=== PATIENT | male | born 1970 | race Caucasian/White ===

== ENCOUNTER 2024-07-24 12:07 | Inpatient (IN) | payer OTHER, SELFPAY ==
[2024-07-24] VITALS (15 sets, daily range): BP systolic 87–132; BP diastolic 63–88; BMI 23.9
--- NOTE | 2024-07-24 08:57 | ED.GENMED ---
History of Present Illness
<TOMMY Mahmood - Last Filed: 07/24/24 15:14>
General
Chief Complaint: Alcohol Problem
Source: patient
Exam Limitations: none
Time Seen by Provider: 07/24/24 08:56
Nursing documentation reviewed up to this point in time: agreed with
History of Present Illness
History of Present Illness:
Patient is a 53-year-old male with chronic alcohol use with history of alcohol withdrawal seizures, hyponatremia and hyperkalemia presents to the ER. Patient came via EMS. Girlfriend called EMS because she was concerned about patient's mental
status. Girlfriend present reports patient has been not himself and intermittently confused over the past several days. He does drink every day but she reports yesterday when he was not drinking at dinnertime he seemed off as well.
Patient presents drowsy appears intoxicated but able to state his name does admit to drinking several beers a couple hours ago.
Past History
<TOMMY Mahmood - Last Filed: 07/24/24 15:14>
Past History
ED Past Medical History: None
ED Past Surgical History: None
Social History
Tobacco: Smoker
Alcohol: Daily
Drug: None
Personal:
Living: with family
Employment: Employed
Family History
Family History: Other (reviewed and noncontributory)
Review of Systems
<TOMMY Mahmood - Last Filed: 07/24/24 15:14>
Review of Systems
Allergies reviewed?: Yes
Other source history: other (Girlfriend)
All Other Systems: ROS reviewed and negative except as documented in HPI and ROS
Constitutional: Reports no symptoms
EENT: Reports no symptoms
Respiratory: Reports no symptoms
Cardiac: Reports no symptoms
ABD/GI: Reports no symptoms
Musculoskeletal: Reports no symptoms
Skin: Reports no symptoms
Neurological: Reports other (Change in mental status as per girlfriend.)
Psychiatric: Reports no symptoms
Phy Exam
<TOMMY Mahmood - Last Filed: 07/24/24 15:14>
General Physical Exam
General Presentation: no apparent distress
General age: appears stated age
General Skin: warm and dry
General Habitus: normal
General Mental: appears intoxicated
General Hydration: dry mucous membranes
Cardiovascular Exam
Cardiovascular Exam: regular rate/rhythm
Pulmonary Exam
Pulmonary Exam: lungs clear and no respiratory distress
Neurological Exam
Neurological Exam: alert and other (Follows commands answers questions)
Musculoskeletal Exam
Musculoskeletal Exam: full ROM
Skin Exam
Skin Exam: normal color and warm/dry
Psychiatric Exam
Psychiatric Exam: normal mood/affect
Scores
<TOMYM Mahmood - Last Filed: 07/24/24 15:14>
Withdrawal Assessment of Alcohol
Withdrawal Assessment Completed?: Not applicable
Course
<TOMMY Mahmood - Last Filed: 07/24/24 15:14>
Orders/Labs/Results
Orders:
Orders
07/24/24 09:01
Alcohol Urgent
CMP [Comprehensive Metabolic Panel] Urgent
Complete Blood Count/With Diff Urgent
07/24/24 09:03
CT Head W/o Iv Contrast Urgent
Comment:
Reason For Exam: altered mental status
07/24/24 09:04
Add On- LAB Urgent
Comments:: in lab
Tests Added?: alcohol
07/24/24 09:05
Ammonia Urgent
07/24/24 09:10
0.9% Sodium Chloride 1000 ml [Nss] 1,000 ml IV BOLUS
07/24/24 11:08
PT/INR [Prothrombin Time] Urgent
07/24/24 11:47
Admit/Transfer Patient As Directed
Co-Sign Provider:
Level of Care: Inpatient admission
Assign to:: Telemetry
Physician / Group: Kermit
Diagnosis: ETOH intoxication
Reason for Telemetry: Syncope
Date to Stop Telemetry: 07/26/24
Time to Stop Telemetry: 11:00
Reason for Hospitalization: Above
Expected length of stay greater than two midnights?: Yes
ELOS- Estimated Length of Stay in days: 2
I certify the patient meets the requirements for IP care: Yes
PRN Pain Medication Management As Directed
May give lesser potent ordered pain med per pt: Yes
preference::
Protocol:: Medication orders for pain may be administered in a
manner that supports deferring to patient preference
when the pt is:
-Requesting an ordered lesser potent pain medication.
Least to most potent pain medications are defined as:
acetaminophen < NSAID < tramadol < opioids (morphine,
oxycodone, hydromorphone).
- Requesting a lesser dose of the same medication IF
ORDERED.
- Requesting a less intrusive route of administration
if both routes are prescribed by the provider (PO <
IV).
07/24/24 11:50
Code Status As Directed
Resuscitation Status: Full Code
07/26/24 11:00
DC Protocol for Telemetry ONCE
Abnormal Lab Results
07/24/24 07/24/24 07/24/24
09:01 09:05 11:08
RBC 3.61 L 10^6/uL
(4.70-6.10)
Hgb 12.8 L g/dL
(13.0-18.0)
Hct 37.2 L %
(39.0-52.0)
MCV 103.0 H fL
(80.0-94.0)
MCH 35.5 H pg
(27.0-31.0)
RDW 15.9 H %
(11.5-14.5)
Plt Count 101 L 10^3/uL
(130-400)
Monocytes % 13.0 H %
(1.7-9.3)
PT 16.6 H Sec
(11.4-14.6)
Sodium 148 H mmol/L
(135-145)
BUN 2 L mg/dl
(9-20)
Glucose 111 H mg/dl
(70-99)
Total Bilirubin 2.1 H mg/dl
(0.2-1.3)
AST 136 H U/L
(17-59)
Alkaline Phosphatase 189 H U/L
(38-126)
Ammonia 69 H umol/L
(9-30)
Alcohol, Quantitative 429 H* mg/dl
07/24/24 09:01
07/24/24 09:01
Vital Signs
Initial and Last Documented VS:
Initial Vital Signs
Temp Pulse Resp BP Pulse Ox
98 F 69 11 125/88 96
07/24/24 08:48 07/24/24 08:48 07/24/24 08:48 07/24/24 08:48 07/24/24 08:48
Last Documented Vital Signs
Temp Pulse Resp BP Pulse Ox
98 F 73 16 116/77 96
07/24/24 08:48 07/24/24 14:15 07/24/24 14:15 07/24/24 14:00 07/24/24 13:30
Stem Processing Machine Operator consulted with Physician
Stem Processing Machine Operator consulted with physician?: Yes
Name of Physician Consulted: Dr Sung
<Alejandro Sung, DO - Last Filed: 07/24/24 13:46>
Orders/Labs/Results
Orders:
Orders
07/24/24 09:01
Alcohol Urgent
CMP [Comprehensive Metabolic Panel] Urgent
Complete Blood Count/With Diff Urgent
07/24/24 09:03
CT Head W/o Iv Contrast Urgent
Comment:
Reason For Exam: altered mental status
07/24/24 09:04
Add On- LAB Urgent
Comments:: in lab
Tests Added?: alcohol
07/24/24 09:05
Ammonia Urgent
07/24/24 09:10
0.9% Sodium Chloride 1000 ml [Nss] 1,000 ml IV BOLUS
07/24/24 11:08
PT/INR [Prothrombin Time] Urgent
07/24/24 11:47
Admit/Transfer Patient As Directed
Co-Sign Provider:
Level of Care: Inpatient admission
Assign to:: Telemetry
Physician / Group: Kermit
Diagnosis: ETOH intoxication
Reason for Telemetry: Syncope
Date to Stop Telemetry: 07/26/24
Time to Stop Telemetry: 11:00
Reason for Hospitalization: Above
Expected length of stay greater than two midnights?: Yes
ELOS- Estimated Length of Stay in days: 2
I certify the patient meets the requirements for IP care: Yes
PRN Pain Medication Management As Directed
May give lesser potent ordered pain med per pt: Yes
preference::
Protocol:: Medication orders for pain may be administered in a
manner that supports deferring to patient preference
when the pt is:
-Requesting an ordered lesser potent pain medication.
Least to most potent pain medications are defined as:
acetaminophen < NSAID < tramadol < opioids (morphine,
oxycodone, hydromorphone).
- Requesting a lesser dose of the same medication IF
ORDERED.
- Requesting a less intrusive route of administration
if both routes are prescribed by the provider (PO <
IV).
07/24/24 11:50
Code Status As Directed
Resuscitation Status: Full Code
07/26/24 11:00
DC Protocol for Telemetry ONCE
Abnormal Lab Results
07/24/24 07/24/24 07/24/24
09:01 09:05 11:08
RBC 3.61 L 10^6/uL
(4.70-6.10)
Hgb 12.8 L g/dL
(13.0-18.0)
Hct 37.2 L %
(39.0-52.0)
MCV 103.0 H fL
(80.0-94.0)
MCH 35.5 H pg
(27.0-31.0)
RDW 15.9 H %
(11.5-14.5)
Plt Count 101 L 10^3/uL
(130-400)
Monocytes % 13.0 H %
(1.7-9.3)
PT 16.6 H Sec
(11.4-14.6)
Sodium 148 H mmol/L
(135-145)
BUN 2 L mg/dl
(9-20)
Glucose 111 H mg/dl
(70-99)
Total Bilirubin 2.1 H mg/dl
(0.2-1.3)
AST 136 H U/L
(17-59)
Alkaline Phosphatase 189 H U/L
(38-126)
Ammonia 69 H umol/L
(9-30)
Alcohol, Quantitative 429 H* mg/dl
07/24/24 09:01
07/24/24 09:01
Vital Signs
Initial and Last Documented VS:
Initial Vital Signs
Temp Pulse Resp BP Pulse Ox
98 F 69 11 125/88 96
07/24/24 08:48 07/24/24 08:48 07/24/24 08:48 07/24/24 08:48 07/24/24 08:48
Last Documented Vital Signs
Temp Pulse Resp BP Pulse Ox
98 F 73 16 116/77 96
07/24/24 08:48 07/24/24 14:15 07/24/24 14:15 07/24/24 14:00 07/24/24 13:30
<TOMMY Mahmood - Last Filed: 07/24/24 15:14>
MDM/Problems Addressed
Differential Diagnosis Includes:
Not limited to alcohol intoxication, dehydration, electrolyte abnormality, intracranial hemorrhage
MDM/Problems Addressed:
As documented patient has a history of alcohol abuse alcohol withdrawal seizures presents for apparent change mental status as per georginaienjuan f. Patient presents awake he is drowsy appears intoxicated. Alcohol level is elevated at 429. Girlfriend
at bedside reports over the patient several days pt seems off even when he was not drinking. His ammonia level is elevated at 69 which is new for patient. His last ammonia in October was 21. [facility] for further evaluation.
<TOMMY Mahmood - Last Filed: 07/24/24 15:14>
*Critical Care Note
Total Time (30-74mins, 75-104mins- exclusive of procedures): Not Applicable
ED Attending Note
<TOMMY Mahmood - Last Filed: 07/24/24 15:14>
-
Portions of this chart may have been created with voice recognition software.� Occasional wrong word or��sound alike� substitutions may have occurred due to the inherent limitations of voice recognition software.
<Alejandro Sung DO - Last Filed: 07/24/24 13:46>
ED Attending Note
Patient seen and examined by attending physician: Yes
I performed the substantive portion of visit, reviewed & personally made and approve the management plan that is documented in note by myself or JOSEFINA.: Yes
ED Attending Note:
53-year-old male with change in mental status. Found to have quite high alcohol level. On my assessment patient is clearly intoxicated. Ammonia level noted. Assessment plan: Admit. Trend ammonia.
Discharge Plan
Departure
Patient Disposition: Admit
Date of Disposition: 07/24/24
Time of Disposition: 10:56
Admit to: Telemetry
Admit to doctor: hospitalist
Presentation/result/management discussed w/ accepting MD/DO: Hospitalist
Patient with high blood pressure during this ER visit?: No
Condition: Fair
Covid-19: Not Applicable
Discharge Problem:
Acute alcohol intoxication, elevated ammonia
Interventions
Interventions:
*Risk Screen - Suicide Last Done: 07/24/24 08:48
*General Assessment Last Done: 07/24/24 08:48
*Neglect/Abuse Screening Last Done: 07/24/24 08:48
ED- Fall Risk Assessment Last Done: 07/24/24 08:57
ED- Neurological Assessment Last Done: 07/24/24 08:57
ED-Psychological Assessment Last Done: 07/24/24 08:57
[2024-07-24 09:16] LABS: % Basophils 0.8 % (0-2); % Eosinophils 0.6 % (0-6); % Immature Granulocytes 0.2 % (0-0.5); % Lymphocytes 41.7 % (20.5-51.1); % Neutrophils 43.7 % (42.2-75.2); Absolute Monocytes 0.6 10^3/uL (0.1-0.6); Absolute Neutrophils 2.1 10^3/uL (1.4-6.5); Hematocrit 37.2 % (39.0-52.0); Hemoglobin 12.8 g/dL (13.0-18.0); Mean Corp Hgb Conc. 34.4 g/dL (33.0-37.0); Mean Corpuscular Hgb 35.5 pg (27.0-31.0); Mean Platelet Volume 9.7 fL (7.4-10.4); Nucleated Red Blood Cells % 0 % (-); Platelet Count 101 10^3/uL (130-400); Red Blood Cell Count 3.61 10^6/uL (4.70-6.10); Red Cell Dist. Width 15.9 % (11.5-14.5); White Blood Cell Count 4.8 10^3/uL (4.8-10.8)
[2024-07-24 09:30] LABS: ALT (SGPT) 33 U/L (0-50); AST (SGOT) 136 U/L (17-59); Albumin 3.6 g/dl (3.5-5.0); Alkaline Phosphatase 189 U/L (38-126); Blood Urea Nitrogen 2 mg/dl (9-20); Calcium 8.6 mg/dl (8.4-10.2); Carbon Dioxide 26 mmol/L (22-30); Chloride 106 mmol/L (98-107); Estimated Creatinine Clearance 113 ml/min; Glucose 111 mg/dl (70-99); Sodium 148 mmol/L (135-145); Total Bilirubin 2.1 mg/dl (0.2-1.3); Total Protein 7.5 g/dl (6.3-8.2); eGFR > 60.00
[2024-07-24 09:32] LABS: Ammonia 69 umol/L (9-30)
[2024-07-24] MEDS: NSS 1000 IV (09:40)
[2024-07-24 09:49] LABS: Alcohol 429 mg/dl
[2024-07-24 11:28] LABS: INR 1.34; PT 16.6 Sec (11.4-14.6)
--- NOTE | 2024-07-24 11:55 | HPS.HSE ---
Family Physician
-
Family Physician: * NONE
Chief Complaint
-
Altered mental status
History of Present Illness
Patient is a 52 manage old male with history of severe alcohol use disorder with prior admissions due to alcohol withdrawal seizures requiring ICU care was brought to the emergency room in the company of girlfriend after found to be intoxicated.
Patient admits to drinking heavy liquor daily. As the [id number] he had bourbon drink this morning prior to presentation. No seizures noted.
While emergency room patient appeared to be drowsy, although his mental status close to baseline.
He found to be intoxicated with alcohol level above 400. In addition ammonia level elevated at 69.
Medical History
Past Medical History
Past Medical History: Reports Other (Alcohol use disorder with alcohol withdrawal seizures)
Past Surgical History: Reports None
Social History
Tobacco: Smoker
Alcohol: Daily (Heavy consumption)
Drug: None
Living: With Family
Family History
Family History: Not pertinent
Allergies / Home Medications
Allergies reflects when Allergies were last updated in [email or web address].
Home Medications with original date entered in [email or web address]
Allergy/Medication List:
Allergies
Allergy/AdvReac Type Severity Reaction Status Date / Time
acetaminophen Allergy patient Verified 07/24/24 08:57
denies
Home Medications
escitalopram oxalate 10 mg tablet (Lexapro) 10 mg PO DAILY 09/30/23
propranolol 20 mg tablet 20 mg PO BID 09/30/23
thiamine HCl (vitamin B1) 100 mg tablet 100 mg PO DAILY #30 tabs 10/05/23
cholecalciferol (vitamin D3) 25 mcg (1,000 unit) tablet (Vitamin D3) 25 mcg PO DAILY 07/24/24
cyanocobalamin (vitamin B-12) 1,000 mcg tablet 1,000 mcg PO DAILY 07/24/24
ibuprofen 200 mg tablet (Advil) 200 mg PO Q6HPRN PRN mild pain 07/24/24
Review of Systems
-
A 12 point ROS was completed and negative except as noted: Yes
Physical Exam
Vital Signs
Vital Signs
Temp Pulse Resp BP Pulse Ox
98 F 61 15 109/78 95
07/24/24 08:48 07/24/24 10:32 07/24/24 10:32 07/24/24 10:32 07/24/24 10:32
Physical Exam
General: Well Developed, Well Nourished and No Apparent Distress
HEENT: NormoCephalic, Moist mucous membranes and Atraumatic
Respiratory: Clear
Cardiac: S1/S2 and Regular Rhythm; No Murmur or Rub
GI: Soft, Non Tender, Non Distended and Normal Bowel Sounds; No Organomegaly
Rectal: Deferred by Provider
Musculoskeletal: No Clubbing, No Cyanosis and No Edema
Skin: No Rash
Neuro: Awake, Alert, Oriented, AO x 3 and Nonfocal/grossly intact; No Tremors
Laboratory Results
-
07/24/24 09:01
07/24/24 09:01
Laboratory Results
PT 16.6 Sec (11.4-14.6) H 07/24/24 11:08
INR 1.34 07/24/24 11:08
Total Bilirubin 2.1 mg/dl (0.2-1.3) H 07/24/24 09:01
AST 136 U/L (17-59) H 07/24/24 09:01
ALT 33 U/L (0-50) 07/24/24 09:01
Alkaline Phosphatase 189 U/L (38-126) H 07/24/24 09:01
Impression/Plan
-
IMPRESSION:
Altered mental status/toxic metabolic encephalopathy secondary to alcohol intoxication.
Hyperammonemia.
Alcoholic hepatitis
Anemia with macrocytosis
Dehydration with hypernatremia
Conditions prior to admission:
Severe alcohol use disorder with history of alcohol withdrawal seizure.
Depression.
Tobacco use disorder.
PLAN:
Toxic metabolic encephalopathy secondary to alcohol intoxication
Alcohol level over 400 upon presentation
Exam with no focal findings.
CT scan of the head with no acute abnormalities
Severe alcohol use disorder at risk for delirium tremens and alcohol withdrawal seizures.
Close monitoring.
MSAS protocol with lorazepam
May require escalation including phenobarbital or Precedex given prior history of alcohol withdrawal seizures requiring ICU care
Will hold on introduction of phenobarbital given elevated ammonia level and while monitoring for withdrawal as well as following liver function.
IV thiamine
Case management consultation with consideration of inpatient alcohol treatment
Dehydration with mild hypernatremia
Sodium 148.
Continue normal saline/aggressive hydration. Follow BMP
Hyperammonemia
Elevated LFTs in the pattern of alcoholic liver disease.
Most recent abdominal sonogram 10/24 with fatty liver.
Mildly elevated PT
Repeat ultrasound.
Follow ammonia level in am
Given mental status close to baseline, hold off on lactulose at this point.
Mild anemia with macrocytosis.
Suspect due to alcoholic liver disease.
Check TSH
Check B12 level
Follow hemoglobin with hydration
Continue beta-dilshad.
If this was introduced over prior admissions for persistent tachycardia. Patient has no documented cirrhosis with variceal disease.
Depression
Continue Lexapro
Full code.
DVT prophylaxis heparin
--- NOTE | 2024-07-24 17:00 | PTCARENOTE ---
patient admitted from ED on MSAS protocol. scored 3 for visible tremors and anxiety present. admission assessment completed. on tele #19, denies pain, VSS. oriented to the unit, assisted with care and ordering meals. resting comfortably in bed.
[2024-07-24] MEDS: THIAMINE INJECTION 200 MG IV ×2 (17:15→23:55)
[2024-07-24] MEDS: FOLVITE 1 MG PO (17:17)
[2024-07-24] MEDS: LEXAPRO 10 MG PO (17:17)
[2024-07-24 18:20] LABS: TSH 2.29 uIU/ml (0.47-4.68)
[2024-07-24 18:39] LABS: Vitamin B12 509 pg/ml (239-931)
[2024-07-24] MEDS: HEPARIN 5000 UNITS SC (20:24)
[2024-07-24] MEDS: INDERAL 20 MG PO (20:24)
[2024-07-25 03:24] VITALS: BP 130/76
[2024-07-25 06:21] LABS: Ammonia 37 umol/L (9-30)
[2024-07-25 06:49] LABS: % Basophils 0.7 % (0-2); % Eosinophils 0.4 % (0-6); % Immature Granulocytes 0.2 % (0-0.5); % Neutrophils 64.7 % (42.2-75.2); Absolute Lymphocytes 0.9 10^3/uL (1.2-3.4); Absolute Monocytes 0.6 10^3/uL (0.1-0.6); Absolute Neutrophils 2.9 10^3/uL (1.4-6.5); Hematocrit 35.1 % (39.0-52.0); Hemoglobin 12.3 g/dL (13.0-18.0); Mean Corpuscular Hgb 36.6 pg (27.0-31.0); Mean Corpuscular Volume 104.5 fL (80.0-94.0); Mean Platelet Volume 9.7 fL (7.4-10.4); Nucleated Red Blood Cells % 0 % (-); Platelet Count 85 10^3/uL (130-400); Red Blood Cell Count 3.36 10^6/uL (4.70-6.10); Red Cell Dist. Width 14.9 % (11.5-14.5); White Blood Cell Count 4.5 10^3/uL (4.8-10.8)
[2024-07-25 07:00] VITALS: BP 134/80
[2024-07-25 07:08] LABS: ALT (SGPT) 31 U/L (0-50); AST (SGOT) 133 U/L (17-59); Albumin 3.2 g/dl (3.5-5.0); Alkaline Phosphatase 182 U/L (38-126); Blood Urea Nitrogen 3 mg/dl (9-20); Calcium 7.9 mg/dl (8.4-10.2); Carbon Dioxide 25 mmol/L (22-30); Chloride 105 mmol/L (98-107); Estimated Creatinine Clearance > 125 ml/min; Glucose 78 mg/dl (70-99); Potassium 3.6 mmol/L (3.5-5.1); Sodium 142 mmol/L (135-145); Total Bilirubin 2.4 mg/dl (0.2-1.3); Total Protein 6.8 g/dl (6.3-8.2); eGFR > 60.00
[2024-07-25] MEDS: INDERAL 20 MG PO (08:23)
[2024-07-25] MEDS: FOLVITE 1 MG PO (08:26)
[2024-07-25] MEDS: LEXAPRO 10 MG PO (08:26)
[2024-07-25] MEDS: HEPARIN 5000 UNITS SC (08:26)
[2024-07-25] MEDS: THIAMINE INJECTION 200 MG IV (08:27)
[2024-07-25 11:00] VITALS: BP 145/84
[2024-07-25 13:00] LABS: Glycohemoglobin (HgbA1c) 4.6 % (4.0-5.6)
--- NOTE | 2024-07-25 15:13 | W.DS.TRANS ---
DC Summary - General Assistant
-
Discharge Instructions:
Discharge Diagnosis/Procedures Alcohol intoxication.
Diet Regular
Instructions:
Stand-Alone Forms:
Changes to Home Medications: No
Discharge Medications:
DC Medications w/original date entered in [facility]
escitalopram oxalate 10 mg tablet (Lexapro) 10 mg PO DAILY depression/anxiety 09/30/23
propranolol 20 mg tablet 20 mg PO BID BP/tremor/AUD 09/30/23
cholecalciferol (vitamin D3) 25 mcg (1,000 unit) tablet (Vitamin D3) 25 mcg PO DAILY Supplement 07/24/24
cyanocobalamin (vitamin B-12) 1,000 mcg tablet 1,000 mcg PO DAILY Supplement 07/24/24
thiamine HCl (vitamin B1) 100 mg tablet 100 mg PO DAILY Supplement 07/24/24
Home Medication Changes
Pending Results: No
--- NOTE | 2024-07-25 16:05 | CM ---
Patient discharged and left the hospital before [employer] was able to meet and complete initial assessment
== END 2024-07-25 15:35 | disposition home or self-care (01) | DRG 896 ==
LOC: 3 WEST ACU 12:07
PROVIDERS: Nurse Practitioner; ADMITTING PHYSICIAN Internal Medicine; EMERGENCY PHYSICIAN Emergency Medicine
DX: F10.229 Alcohol dependence with intoxication, unspecified (principal); G92.8 Other toxic encephalopathy; E87.0 Hyperosmolality and hypernatremia; E72.20 Disorder of urea cycle metabolism, unspecified; K70.10 Alcoholic hepatitis without ascites; Y90.8 Blood alcohol level of 240 mg/100 ml or more
CPT/HCPCS: 70450; 76700; 80053; 82077; 82140; 82607; 83036; 84443; 85025; 85610; 96360; 99285

== ENCOUNTER 2025-03-18 15:28 | Inpatient (IN) | payer OTHER, SELFPAY ==
[2025-03-18] VITALS (13 sets, daily range): BP systolic 124–177; BP diastolic 71–101; BMI 23.0; BMI 23.1
--- NOTE | 2025-03-18 10:14 | ED.GENMED ---
History of Present Illness
General
Chief Complaint: Seizure
Time Seen by Provider: 03/18/25 10:09
History of Present Illness
History of Present Illness:
54-year-old male presents to the emergency department for evaluation of a suspected seizure. He has a reported history of epilepsy although he denies this during our initial evaluation. He was witnessed to be having a seizure this morning by his
partner. Patient does not feel as though he had a seizure. History of alcohol use disorder, estimates he drinks at least 10 beers per day for more than the past year consistently. His last drink was 11 PM last night. He currently denies
complaints. There is evidence of dried blood around the mouth
Past History
Past History
ED Past Medical History: None
ED Past Surgical History: None
Social History
Tobacco: Smoker
Alcohol: Daily
Drug: None
Personal:
Living: with family
Employment: Employed
Family History
Family History: Other (reviewed and noncontributory)
Review of Systems
Review of Systems
Allergies reviewed?: Yes
All Other Systems: ROS reviewed and negative except as documented in HPI and ROS
Phy Exam
Physical Exam
Physical Exam:
GEN: Well appearing, NAD, WDWN
HEENT: Oral mucosa moist, no scleral icterus, no nasal congestion. Evidence of dried blood around the mouth with tongue injury appreciated
Cardiac: Regular rate and rhythm, no murmurs
Lung: No respiratory distress, no tachypnea
MSK: No gross deformity or injuries
Skin: Good color, no pallor or jaundice, no rashes
Neuro: Alert, oriented to self and place, some confusion to time and events; CN II-XII grossly intact. BUE strength 5/5 in all gutierrez, sensation intact and symmetric. BLE strength 5/5 in all gutierrez, sensation intact and symmetric. Diffuse tremor
noted at rest and with intention
Psych: Calm, cooperative
Course
Orders/Labs/Results
Orders:
Orders
03/18/25 10:14
CT Head W/o Iv Contrast Urgent
Comment:
Reason For Exam: seizure
Urinalysis Reflex To Culture Urgent
03/18/25 10:16
EKG [Electrocardiogram (*1)] Urgent
Reason for Study: Other
Other Reason for Exam: seizure
EKG- Treatment ONCE
03/18/25 10:25
Alcohol Urgent
Ammonia Urgent
Complete Blood Count/With Diff Urgent
Comprehensive Metabolic Panel Urgent
Lamictal [Lamotrigine (Lamictal)] [S] Urgent
03/18/25 13:08
Acetaminophen [Tylenol] 650 mg .ROUTE .STK-MED ONE
03/18/25 13:10
Acetaminophen [Tylenol] 650 mg PO NOW STA
03/18/25 14:11
Phenobarbital Sodium [Phenobarbital] 260 mg 0.9% Sodium Chloride 100 ml [Nss] 100 ml IV NOW
03/18/25 14:47
Admit/Transfer Patient As Directed
Co-Sign Provider:
Level of Care: Inpatient admission
Assign to:: Telemetry
Physician / Group: ady
Diagnosis: alcohol withdrawal
Reason for Telemetry: Other
Other Reason for Telemetry: alcohol withdrawal
Date to Stop Telemetry: 03/20/25
Time to Stop Telemetry: 11:00
Reason for Hospitalization: alcohol withdrawal
Expected length of stay greater than two midnights?: Yes
ELOS- Estimated Length of Stay in days: 3
I certify the patient meets the requirements for IP care: Yes
PRN Pain Medication Management As Directed
May give lesser potent ordered pain med per pt: Yes
preference::
Protocol:: Medication orders for pain may be administered in a
manner that supports deferring to patient preference
when the pt is:
- Requesting an ordered lesser potent pain medication.
Least to most potent pain medications are defined
as: acetaminophen < NSAID < tramadol < opioids
(morphine, oxycodone, hydromorphone).
- Requesting a lesser dose of the same medication IF
ORDERED.
- Requesting a less intrusive route of administration
if both routes are prescribed by the provider (PO <
IV).
03/18/25 14:48
Code Status As Directed
Resuscitation Status: Full Code
03/20/25 11:00
DC Protocol for Telemetry ONCE
Abnormal Lab Results
03/18/25 03/18/25
10:22 10:25
RBC 4.28 L 10^6/uL
(4.70-6.10)
MCV 94.9 H fL
(80.0-94.0)
MCH 33.9 H pg
(27.0-31.0)
Absolute Lymphs (auto) 0.7 L 10^3/uL
(1.2-3.4)
Neutrophils % 83.8 H %
(42.2-75.2)
Lymphocytes % 10.1 L %
(20.5-51.1)
BUN 4 L mg/dl
(9-20)
Glucose 188 H mg/dl
(70-99)
Ammonia 61 H umol/L
(9-30)
POC Glucose 205 H mg/dl
(70-99)
03/18/25 10:25
03/18/25 10:25
Vital Signs
Initial and Last Documented VS:
Initial Vital Signs
Temp Pulse Resp BP Pulse Ox
98.7 F 72 17 147/101 96
03/18/25 10:09 03/18/25 10:09 03/18/25 10:09 03/18/25 10:09 03/18/25 10:09
Last Documented Vital Signs
Temp Pulse Resp BP Pulse Ox
99.6 F 70 14 145/90 95
03/18/25 14:00 03/18/25 14:15 03/18/25 14:15 03/18/25 14:00 03/18/25 14:15
MDM/Problems Addressed
MDM/Problems Addressed:
54-year-old male presents to the emergency department after a witnessed seizure. He was initially quite stable in the emergency department however had a recurrent seizure event with subsequent increase in blood pressure and diaphoretic appearance.
This is concerning for progressive alcohol withdrawal. Initially he was placed in outpatient detox program however given the repeated seizure event we will admit him for withdrawal management
*Pulse Oximetry
SaO2: 96
Oxygen Mode of Delivery: Room air
Patient hypoxic: no
*Critical Care Note
Total Time (30-74mins, 75-104mins- exclusive of procedures): Not Applicable
Update Note
Update Note:
1357: Called to the room by patient's significant other alerting us that the patient had a witnessed seizure-like event with a staring spell, generalized tremors, and unresponsiveness. On my arrival the patient is alert but profoundly diaphoretic
and hypertensive. He was evaluated by Vianey nolasco and is set up with an outpatient appointment on Sunday for withdrawal/detox program. Will admit for withdrawal protocol
ED Attending Note
-
Portions of this chart may have been created with voice recognition software.� Occasional wrong word or��sound alike� substitutions may have occurred due to the inherent limitations of voice recognition software.
Discharge Plan
Departure
Patient Disposition: Admit
Date of Disposition: 03/18/25
Time of Disposition: 14:04
Admit to: IMU
Presentation/result/management discussed w/ accepting MD/DO: Hospitalist
Discharge Problem:
Alcohol withdrawal seizure
Interventions
Interventions:
*Risk Screen - Suicide Last Done: 03/18/25 10:16
*General Assessment Last Done: 03/18/25 10:17
*Neglect/Abuse Screening Last Done: 03/18/25 10:16
*ED- Fall Risk Assessment Last Done: 03/18/25 10:15
*ED COVID-19 Vaccine History Last Done: 03/18/25 10:15
ED- Cardiac Assessment Last Done: 03/18/25 10:19
ED- Neurological Assessment Last Done: 03/18/25 10:19
ED- Pulmonary Assessment Last Done: 03/18/25 10:19
[2025-03-18 10:23] LABS: Glucose - Point of Care 205 mg/dl (70-99)
[2025-03-18 10:37] LABS: % Basophils 0.3 % (0-2); % Immature Granulocytes 0.3 % (0-0.5); % Lymphocytes 10.1 % (20.5-51.1); % Monocytes 5.5 % (1.7-9.3); % Neutrophils 83.8 % (42.2-75.2); Absolute Lymphocytes 0.7 10^3/uL (1.2-3.4); Absolute Monocytes 0.4 10^3/uL (0.1-0.6); Absolute Neutrophils 5.5 10^3/uL (1.4-6.5); Hematocrit 40.6 % (39.0-52.0); Hemoglobin 14.5 g/dL (13.0-18.0); Mean Corp Hgb Conc. 35.7 g/dL (33.0-37.0); Mean Corpuscular Hgb 33.9 pg (27.0-31.0); Mean Corpuscular Volume 94.9 fL (80.0-94.0); Mean Platelet Volume 9.6 fL (7.4-10.4); Nucleated Red Blood Cells % 0 % (-); Platelet Count 138 10^3/uL (130-400); Red Blood Cell Count 4.28 10^6/uL (4.70-6.10); Red Cell Dist. Width 12.4 % (11.5-14.5); White Blood Cell Count 6.5 10^3/uL (4.8-10.8)
[2025-03-18 10:56] LABS: AST (SGOT) 37 U/L (17-59); Albumin 4.2 g/dl (3.5-5.0); Alcohol None Detected; Alkaline Phosphatase 57 U/L (38-126); Blood Urea Nitrogen 4 mg/dl (9-20); Carbon Dioxide 25 mmol/L (22-30); Chloride 105 mmol/L (98-107); Estimated Creatinine Clearance > 125 ml/min; Glucose 188 mg/dl (70-99); Potassium 4.5 mmol/L (3.5-5.1); Sodium 137 mmol/L (135-145); Total Bilirubin 1.2 mg/dl (0.2-1.3); Total Protein 7.4 g/dl (6.3-8.2); eGFR > 60.00
[2025-03-18 11:02] LABS: Ammonia 61 umol/L (9-30)
[2025-03-18 11:51] LABS: ALT (SGPT) < 10 U/L (0-50)
[2025-03-18] MEDS: TYLENOL 650 MG PO (13:11)
[2025-03-18] MEDS: PHENOBARBITAL 104 MG IV (14:25)
--- NOTE | 2025-03-18 14:26 | HPS.HSE ---
Family Physician
-
Family Physician: * NONE
Chief Complaint
-
Seizure
History of Present Illness
54-year-old male with past medical history of alcohol abuse, withdrawal seizures, depression, anxiety with seizure. Patient was cutting down on his alcohol. He stopped drinking vodka since yesterday. He drank 6 beers daily. Patient usually
drinks half a paint vodka daily. This morning, his noted him breathing heavy, his hands were twitching, he bit on his tongue and he was noted diaphoretic and pale. Lasted for less than 5 minutes. By the time ambulance got patient was fine
and walked to the ambulance. Patient complained of headache. Patient denied any dizzy or syncope. Patient denied any fever, chills, cough or congestion. Patient denied any abdominal pain, nausea, vomiting, diarrhea. Patient denied dysuria
hematuria.Cymbalta was started yesterday as they are planning to wean him off the Lexapro as its not helping.
Patient was noted to have seizure in the ER as well. Patient received a dose of Tylenol, phenobarbital in ER. UA sent from ER. Lamictal labs pending. Admitting for further management
Medical History
Past Medical History
Past Medical History: Reports Other
Additional Past Medical History:
Tremors
Anxiety
Depression
Arthritis
Lyme disease
Past Surgical History: Reports None
Social History
Tobacco: Non-smoker
Alcohol: Daily
Drug: None
Personal:
Living: With Family
Family History
Family History: Not pertinent
Allergies / Home Medications
Allergies reflects when Allergies were last updated in [facility].
Home Medications with original date entered in [facility]
Allergy/Medication List:
Allergies
Allergy/AdvReac Type Severity Reaction Status Date / Time
acetaminophen Allergy patient Verified 07/24/24 08:57
denies
Home Medications
escitalopram oxalate 10 mg tablet (Lexapro) 10 mg PO DAILY depression/anxiety 09/30/23
propranolol 20 mg tablet 20 mg PO BID BP/tremor/AUD 09/30/23
cholecalciferol (vitamin D3) 25 mcg (1,000 unit) tablet (Vitamin D3) 25 mcg PO DAILY Supplement 07/24/24
cyanocobalamin (vitamin B-12) 1,000 mcg tablet 1,000 mcg PO DAILY Supplement 07/24/24
thiamine HCl (vitamin B1) 100 mg tablet 100 mg PO DAILY Supplement 07/24/24
Review of Systems
-
Constitutional: Reports No Symptoms
EENT: Reports No Symptoms
Respiratory: Reports No Symptoms
Cardiac: Reports No Symptoms
Abdomen/GI: Reports No Symptoms
: Reports No Symptoms
Musculoskeletal: Reports No Symptoms
Skin: Reports No Symptoms
Neurological: Reports No Symptoms
Endocrine: Reports No Symptoms
Hematologic/Lymphatic: Reports No Symptoms
Psych: Reports No Symptoms
Physical Exam
Vital Signs
Vital Signs
Temp Pulse Resp BP Pulse Ox
99.6 F 70 14 145/90 95
03/18/25 14:00 03/18/25 14:15 03/18/25 14:15 03/18/25 14:00 03/18/25 14:15
Physical Exam
General: Well Developed, Well Nourished and No Apparent Distress
HEENT: NormoCephalic, Moist mucous membranes and Atraumatic
Respiratory: Clear
Cardiac: S1/S2 and Regular Rhythm; No Murmur or Rub
GI: Soft, Non Tender, Non Distended and Normal Bowel Sounds; No Organomegaly
Rectal: Deferred by Provider
Musculoskeletal: No Clubbing, No Cyanosis and No Edema
Skin: No Rash
Neuro: AO x 3 and Nonfocal/grossly intact
Psych: Calm
Laboratory Results
-
03/18/25 10:25
03/18/25 10:25
Laboratory Results
Total Bilirubin 1.2 mg/dl (0.2-1.3) 03/18/25 10:25
AST 37 U/L (17-59) 03/18/25 10:25
ALT < 10 U/L (0-50) 03/18/25 10:25
Alkaline Phosphatase 57 U/L (38-126) 03/18/25 10:25
Data Reviewed
-
CT Scan: Report Reviewed by me
Lab Data: Labs Reviewed by me
Impression/Plan
-
# Alcohol withdrawal with multiple seizures
- Head CT with small old right lentiform nucleus infract seen again.No acute intracranial abnormality.
- Alcohol protocol initiated
- Monitor MSAS score
-B care consulted
- Initiated on phenobarbital
# Hyperammonemia
- Continue to monitor
# Tremor
-Propranolol continued
#Depression/mood disorder
Continue Lexapro
-hold Cymbalta
- Mirtazapine for sleep at night
-Lamictal continued
Full code.
DVT prophylaxis lovenox
--- NOTE | 2025-03-18 15:22 | W.PN.UPDATE ---
Update Note
Progress Note Update
This is an addendum to H&P written by Rodolfo Muro on 03/18/2025. �Patient seen and examined independently with [employer].
54-year-old male past medical history of alcohol use disorder, alcohol withdrawal seizure once, alcoholic hepatitis, on Lamictal for mood stabilization, hyperammonemia, anemia, tobacco use disorder, here for alcohol withdrawal seizure.
Started taking duloxetine yesterday and weaning off Lexapro because Lexapro not helping his mood.
He was drinking half a pint of vodka +6 beers and stopped vodka yesterday and continuing to 6 beers. �Last drink last night. � noted that he was breathing heavily and hands were twitching while asleep and biting tongue.
Alcohol level negative. �Ammonia level of 61. �CT head shows small old right lentiform nucleus infarct again seen.
Patient with alcohol withdrawal seizures alcohol withdrawal. �Phenobarbital protocol. �Alcohol withdrawal protocol. �IV fluids, thiamine and folate. �Lamictal level pending.
Will hold Cymbalta although does not seem that seizure is related to this.
--- NOTE | 2025-03-18 15:51 | CM ---
CM reviewed chart and met with pt bedside in ED.
Pt lives with Significant Other Humberto in 2nd floor apartment, full flight of stairs, BR/BA same level.
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
No DME, no hx VN/SNF.
Offered BECARES, pt declined, wants to speak to SO first.
PCP: None
Pharmacy: [facility]
Discharge plan: Anticipate home pending ongoing medical evaluation
[2025-03-18] MEDS: THIAMINE INJECTION 200 MG IV ×2 (17:52→23:50)
[2025-03-18] MEDS: LEXAPRO 15 MG PO (17:52)
[2025-03-18] MEDS: LOVENOX 40 MG SC (17:53)
[2025-03-18 17:55] LABS: GGTP 271 U/L (15-73); Magnesium 1.9 mg/dl (1.6-2.3); Phosphorus 3.7 mg/dl (2.5-4.5)
[2025-03-18 17:56] LABS: Alcohol None Detected
--- NOTE | 2025-03-18 18:00 | PTCARENOTE ---
Pt received from ED and walked into room 333 with little assistance. VSS. Pt oriented to unit. pt assigned tele, HR 80s-90s. aaox3 and very pleasant. Pt tremulous and diaphoretic, scoring 3 on MSAS protocol. Call [facility] within reach. Plan of care
ongoing.
[2025-03-18 18:01] LABS: B-Hydroxybutyrate 0.51 mmol/L (0.02-0.27)
[2025-03-18 19:28] LABS: INR 1.08; PT 14.5 Sec (11.4-14.6)
[2025-03-18 19:29] LABS: APTT 30.6 Sec (23.4-35.0)
[2025-03-18] MEDS: INDERAL 20 MG PO (21:01)
[2025-03-18] MEDS: PHENOBARBITAL 97.5 MG IV (21:18)
[2025-03-18] MEDS: REMERON 15 MG PO (21:18)
[2025-03-18] MEDS: FLUSH (NSS) 2 FLUSH IV ×2 (21:23→23:50)
[2025-03-19 03:11] VITALS: BP 142/93
--- NOTE | 2025-03-19 07:37 | W.PN.HOSP.TC ---
Today's Communication/Plan
-
Continue Phenobarb taper
High risk alcohol withdrawal
Continue to monitor on telemetry
Assessment / Plan
Assessment / Plan
Physical Exam
General: Well Developed, Well Nourished and No Apparent Distress
HEENT: Normocephalic, Moist mucous membranes
Respiratory: Clear to Auscultation Bilaterally
Cardiac: S1/S2 and Regular Rhythm
GI: Soft, Non Tender, Non Distended and Normal Bowel Sounds
Musculoskeletal: No Cyanosis and No Edema
Skin: Warm. Dry.
Neuro: AAO x 3 and Nonfocal/grossly intact
Psych: Calm
Assessment/Plan
54-year-old male with past medical history of reported history of epilepsy, alcohol use disorder, alcohol withdrawal seizure once, alcoholic hepatitis, on Lamictal for mood stabilization, hyperammonemia, anemia, tobacco use disorder, presented for
alcohol withdrawal seizure. Started taking duloxetine yesterday and weaning off Lexapro because Lexapro not helping his mood. He was drinking half a pint of vodka +6 beers and stopped vodka on 03/17/25 and continuing to 6 beers on 03/17/25. Last
drink was 03/17/25 evening. noted that he was breathing heavily and hands were twitching while asleep and biting tongue. Alcohol level negative. Ammonia level of 61. 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
Patient with susp[ected alcohol withdrawal seizures alcohol withdrawal. Phenobarbital protocol. Alcohol withdrawal protocol. IV fluids, thiamine and folate. Lamictal level pending. Will hold Cymbalta although does not seem that seizure is
related to this.
# Alcohol withdrawal with multiple seizures
- Head CT with small old right lentiform nucleus infract seen again.No acute intracranial abnormality.
- Alcohol protocol initiated
- Monitor MSAS score
- B care consulted
- Continue phenobarbital taper
- Patient has a reported history of epilepsy per records, will consult neurology
- Follow-up Lamictal level
- Patient Started Cymbalta 03/17/25 -- but this was stopped on admission given seizure -- this was for mood -- since Lexapro was not working for mood, it was being weaned off and Cymbalta started
outpatient
# Hyperammonemia
- Was elevated at 61
- No encephalopathy noted
# Tremor
-Propranolol continued
#Depression/mood disorder
- Continue Lexapro taper
- Hold Cymbalta
- Mirtazapine for sleep at night
- Lamictal continued
Code Status: Full Code
DVT Prophylaxis: Lovenox
Anticipated Discharge: > 48 hours
Subjective/Interval History
-
Date of Service: March 19, 2025
Patient was seen and examined. He denied any further seizures, or any other new symptoms or complaints today.
Objective Data
-
Vital Signs:
Vital Signs
Temp Pulse Resp BP Pulse Ox
98.0 F 75 16 142/93 98
03/19/25 03:11 03/19/25 03:11 03/19/25 03:11 03/19/25 03:11 03/19/25 03:11
I&O
03/18/25 03/19/25 03/20/25
06:59 06:59 06:59
Intake Total 1440 / 1440
Balance 1440 / 1440
[2025-03-19] MEDS: LAMICTAL 150 MG PO (07:52)
[2025-03-19] MEDS: FEOSOL 325 MG PO (07:52)
[2025-03-19] MEDS: FOLVITE 1 MG PO (07:52)
[2025-03-19] MEDS: PHENOBARBITAL 97.5 MG IV ×3 (07:53→21:57)
[2025-03-19] MEDS: LEXAPRO 15 MG PO (07:53)
[2025-03-19] MEDS: THIAMINE INJECTION 200 MG IV ×2 (07:54→15:39)
[2025-03-19] MEDS: INDERAL 20 MG PO ×2 (07:57→20:09)
[2025-03-19 08:00] VITALS: BP 125/80
[2025-03-19 11:30] VITALS: BP 120/69
[2025-03-19 14:12] LABS: Hemoglobin 14.1 g/dL (13.0-18.0); Mean Corp Hgb Conc. 35.3 g/dL (33.0-37.0); Mean Corpuscular Hgb 34.1 pg (27.0-31.0); Mean Corpuscular Volume 96.9 fL (80.0-94.0); Mean Platelet Volume 9.3 fL (7.4-10.4); Platelet Count 135 10^3/uL (130-400); Red Blood Cell Count 4.13 10^6/uL (4.70-6.10); Red Cell Dist. Width 12.6 % (11.5-14.5); White Blood Cell Count 8.3 10^3/uL (4.8-10.8)
[2025-03-19 14:48] LABS: Blood Urea Nitrogen 10 mg/dl (9-20); Calcium 9.2 mg/dl (8.4-10.2); Carbon Dioxide 26 mmol/L (22-30); Chloride 108 mmol/L (98-107); Estimated Creatinine Clearance > 125 ml/min; Glucose 90 mg/dl (70-99); Potassium 3.8 mmol/L (3.5-5.1); Sodium 140 mmol/L (135-145); eGFR > 60.00
[2025-03-19 16:01] VITALS: BP 133/70
[2025-03-19] MEDS: LOVENOX SC (18:07)
[2025-03-19 19:45] VITALS: BP 122/70
[2025-03-19] MEDS: REMERON 15 MG PO (21:57)
[2025-03-19] MEDS: TUMS CHEWABLE TABLET 200 MG PO (21:57)
[2025-03-19 22:42] VITALS: BP 141/84
[2025-03-19 22:49] LABS: Urine Albumin 2+ (Neg - Trace); Urine Bilirubin 1+ (Negative); Urine Character Clear (Clear); Urine Color Yellow; Urine Glucose Negative (Negative); Urine Ketone Negative (Negative); Urine Leukocyte 1+ (Negative); Urine Nitrite Negative (Negative); Urine Occult Blood Negative (Negative); Urine Urobilinogen 2+ (Neg - 1+)
[2025-03-19 22:55] LABS: Urine Mucus Many
[2025-03-19 22:56] LABS: Urine Calcium Oxalate Crystals Present; Urine Squamous Cell 0-2 /LPF (Few)
[2025-03-19 22:57] LABS: Urine Bacteria Moderate (Negative); Urine Red Blood Cell 0-2 /HPF (0-2)
[2025-03-19 22:58] LABS: Marijuana Positive (Negative); Tricyclic Antidepressants Negative (Negative)
[2025-03-19 22:59] LABS: Amphetamines Negative (Negative); Barbiturates Positive (Negative); Benzodiazepines Negative (Negative); Buprenorphine Negative (Negative); Cocaine Negative (Negative); Methadone Negative (Negative); Methamphetamines Negative (Negative); Opiates Negative (Negative); Phencyclidine Negative (Negative)
[2025-03-20] MEDS: THIAMINE INJECTION 200 MG IV ×4 (00:11→23:21)
[2025-03-20 02:38] VITALS: BP 142/86
[2025-03-20 06:13] LABS: Ammonia < 9 umol/L (9-30)
[2025-03-20 06:45] LABS: Blood Urea Nitrogen 11 mg/dl (9-20); Carbon Dioxide 28 mmol/L (22-30); Chloride 105 mmol/L (98-107); Estimated Creatinine Clearance > 125 ml/min; Glucose 94 mg/dl (70-99); Potassium 3.8 mmol/L (3.5-5.1); Sodium 138 mmol/L (135-145); eGFR > 60.00
[2025-03-20 07:49] VITALS: BP 134/81
--- NOTE | 2025-03-20 08:06 | CON.NEURO ---
Consultation
Order
Date of Consultation: 03/20/25
Requesting Provider:
Reason for Consult:
Neurology Consultation Note.
HPI: This is a 54-year-old right-handed man who presented to [facility] on 03/18/2025 with witnessed seizure. According to EMR patient had seizure following alcohol cessation in sleep prompting the evaluation.
Mr. Huitron has a history of alcohol use since age 14-15, presents with concerns of memory problems that have been ongoing for the past couple of years. He reports difficulties with short-term memory, which have been noticed by his family members,
colleagues, and girlfriend.
The patient describes forgetting information shortly after being told, with his girlfriend often remarking, 'I just told you that like 5 minutes ago.' He tends to forget things he has looked at once or twice and then put aside. Mr. Huitron
acknowledges difficulties learning new information and reports repeating himself and telling the same stories.
Mr. Huitron came to the hospital primarily for alcohol detoxification, recognizing that his excessive drinking was 'starting to affect my life a lot and my health.' He made this decision jointly with his partner. The patient reports a family
history of dementia in his paternal grandfather, who also experienced mood disorders.
Currently, Mr. Huitron is taking medications for depression and anxiety, including escitalopram, though he has difficulty remembering all of his prescriptions. He uses a pillbox to manage his medications, which either he or his girlfriend fills.
No reports of head trauma with loss of consciousness, febrile seizures.
EMS VS: 154/96, 100, 16, 95 on room air, fingerstick�104.
ER VS: 147/101, 72, afebrile
EKG: NSR, QTc Int : 525 ms.
PDMP: No recently prescribed medication
Labs: Glucose�188, normal sodium, creatinine, WBCs, GGT�271, bilirubin�1.2, ammonia�61, UA�positive for leukocyte esterase, bilirubin, 3�5 WBCs, bacteria negative for nitrates, urine tox�positive for THC, barbiturates (phenobarbital was administered
in the hospital), Lamictal�5.2, ATOH�negative
CT head wo contrast-chronic right lentiform nucleus infarct, moderate generalized atrophy.
PMH: Alcohol use disorder, ELPIDIO, vitamin D deficiency
PSH:
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
FH: Father's uncle: Alcohol addiction
All: Tylenol
ROS: Constitutional: Negative. Negative for chills, fever and unexpected weight change.
HENT: Negative for ear pain, hearing loss, tinnitus and trouble swallowing.
Eyes: Negative. Negative for photophobia, pain and visual disturbance.
Respiratory: Negative for cough, choking and shortness of breath.
Cardiovascular: Negative for chest pain, palpitations and leg swelling.
Gastrointestinal: Negative for abdominal pain and vomiting.
Endocrine: Negative. Negative for cold intolerance.
Genitourinary: Negative for dysuria, flank pain and urgency.
Musculoskeletal: Negative for back pain, gait problem, neck pain and neck stiffness.
Skin: Negative for rash.
Allergic/Immunologic: Negative. Negative for immunocompromised state.
Neurological: Positive for poor memory
Psychiatric/Behavioral: Negative for behavioral problems, confusion and hallucinations.
General: Well developed. In no acute distress.
Cardio: Regular rate and rhythm without murmur. Extremities are without cyanosis or edema.
Neuro:
Mental Status: Alert, oriented to person, place, and date. Normal attention, impaired recall. Good fund of knowledge. Follows complex requests across the midline. Comprehension, naming, and repetition intact. Immediate recall 3/3.
Cranial Nerves: Pupils are equally round and reactive to light. EOMs full. Visual gutierrez full to confrontation. No ptosis. No nystagmus. V1-V3 intact to light touch and pinprick bilaterally, symmetric. Face symmetric. Normal hearing AU. The
palate elevated well. SCMs and traps 5/5. Tongue midline. No dysarthria.
Motor: Normal bulk and tone. No pronator or arm drift. Strength 5/5 throughout. No clonus.
Reflexes: 2+ throughout the upper extremities and knees. Plantar responses flexor bilaterally.
Sensory: Preserved vibration at the toes
Coordination: No dysmetria or tremor.
Gait: Normal stance, base. Difficulties with tandem gait.
Assessment and Plan:
I. Symptomatic seizure. Back to baseline
II. 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
III. Chronic right lentiform nucleus infarct, known to cause memory impairment, among other cognitive and motor deficits.�The specific memory impairments can vary, but may include difficulties with new memory formation while retaining older
memories.�The lentiform nucleus is involved in various cognitive functions, including memory, working memory, and executive functions
IV. Cannabis and alcohol use disorder.
V. Brain atrophy (toxic versus neurodegenerative)/
-Seizure precaution
- Aspirin 81 mg once a day
- Continue thiamine, vitamin B12
- Please obtain routine EEG and brain MRI (can be done as outpatient)
- Addiction psychiatry follow-up
- Outpatient neuropsychological evaluation
- Outpatient neurology follow-up (may consider amyloid PET scan)
I personally reviewed all radiology and labs along with past medical records pertinent to current medical problems. Total time spent in patient care is 60 minutes.
Thank you for allowing us to participate in the care of this patient. We will continue to follow. Please do not hesitate to contact us with any questions or concerns.
Subjective/Objective
Subjective Data
Date of Service: March 20, 2025
Objective Data
Vital Signs
Temp Pulse Resp BP Pulse Ox
36.6 C 59 16 134/81 96
03/20/25 07:49 03/20/25 07:49 03/20/25 07:49 03/20/25 07:49 03/20/25 07:49
Lab Results
03/19/25 14:05
03/20/25 05:37
PT 14.5 Sec (11.4-14.6) 03/18/25 19:11
INR 1.08 03/18/25 19:11
APTT 30.6 Sec (23.4-35.0) 03/18/25 19:11
Sodium 138 mmol/L (135-145) 03/20/25 05:37
Potassium 3.8 mmol/L (3.5-5.1) 03/20/25 05:37
BUN 11 mg/dl (9-20) 03/20/25 05:37
Glucose 94 mg/dl (70-99) 03/20/25 05:37
Calcium 9.0 mg/dl (8.4-10.2) 03/20/25 05:37
Phosphorus 3.7 mg/dl (2.5-4.5) 03/18/25 17:31
Ur Buprenorphine Negative (Negative) 03/19/25 22:39
Patient Allergies
acetaminophen Allergy (Verified 07/24/24 08:57)
patient denies
Medications
-
Active Medications
Generic Name Dose Route Start Last Admin
Trade Name Freq PRN Reason Stop Dose Admin
Bisacodyl 10 mg 03/18/25 16:59
Bisacodyl 10 Mg Rectal Suppository RECTAL 04/15/25 16:58
[id number] PRN
constipation
Enoxaparin Sodium 40 mg 03/18/25 18:00 03/19/25 18:07
Enoxaparin Sodium 40 Mg/0.4 Ml Syringe SC 04/15/25 17:59 Not Given
QPM RUBI
Escitalopram Oxalate 15 mg 03/18/25 17:00 03/19/25 07:53
Escitalopram 10 Mg Tablet PO 03/23/25 08:01 15 mg
DAILY RUBI Administration
Escitalopram Oxalate 10 mg 03/24/25 08:00
Escitalopram 10 Mg Tablet PO 03/30/25 08:01
DAILY RUBI
Escitalopram Oxalate 5 mg 03/31/25 08:00
Escitalopram 5 Mg Tablet PO 04/06/25 08:01
DAILY RUBI
Ferrous Sulfate 325 mg 03/19/25 08:00 03/19/25 07:52
Ferrous Sulfate 325 Mg Tablet PO 04/16/25 07:59 325 mg
DAILY RUBI Administration
Folic Acid 1 mg 03/19/25 08:00 03/19/25 07:52
Folic Acid 1 Mg Tablet PO 04/16/25 07:59 1 mg
DAILY RUBI Administration
Folic Acid 1 mg/ Sodium 50.2 mls @ 200.8 mls/hr 03/18/25 16:59
Chloride IV 04/15/25 16:58
DAILYPRN PRN
if NPO
Lamotrigine 150 mg 03/19/25 08:00 03/19/25 07:52
Lamotrigine 100 Mg Tablet PO 04/16/25 07:59 150 mg
DAILY RUBI Administration
Lorazepam 1 mg 03/18/25 16:59
Lorazepam 1 Mg Tablet PO 04/15/25 16:58
Q2HPRN PRN
MSAS 5-7
Lorazepam 2 mg 03/18/25 16:59
Lorazepam 2 Mg/Ml Vial IV 04/15/25 16:58
Q1HPRN PRN
MSAS > 11
Lorazepam 1 mg 03/18/25 17:39
Lorazepam 1 Mg Tablet PO 04/15/25 17:38
Q1HPRN PRN
MSAS 8-11
Mirtazapine 15 mg 03/18/25 22:00 03/19/25 21:57
Mirtazapine 15 Mg Regular Release Tablet PO 04/15/25 21:59 15 mg
HS RUBI Administration
Phenobarbital Sodium 97.5 mg 03/18/25 22:00 03/19/25 21:57
Phenobarbital (65 Mg/Ml) 1 Ml Vial IV 03/20/25 16:01 97.5 mg
TID RUBI Administration
Phenobarbital Sodium 64.8 mg 03/20/25 22:00
Phenobarbital 32.4 Mg Tablet PO 03/22/25 16:01
TID RUBI
Phenobarbital Sodium 32.4 mg 03/22/25 22:00
Phenobarbital 32.4 Mg Tablet PO 03/24/25 16:01
TID RUBI
Polyethylene Glycol 17 grams 03/18/25 16:59
Polyethylene Glycol Powder 17 Grams Packet PO 04/15/25 16:58
DAILYPRN PRN
constipation
Propranolol HCl 20 mg 03/18/25 20:00 03/19/25 20:09
Propranolol 20 Mg Regular Release Tablet PO 04/15/25 19:59 20 mg
BID RUBI Administration
Senna/Docusate Sodium 1 tablet 03/18/25 16:59
Docusate W/Senna (Carla-Colace) Tablet PO 04/15/25 16:58
BIDPRN PRN
constipation
Sodium Chloride 0 ml 03/18/25 16:59
Sodium Chloride 0.9% (Preservative Free) 10 Ml Vial IV 04/15/25 16:58
PRN PRN
To dilute IV Ativan
Protocol
Sodium Chloride 0 flush 03/18/25 18:00 03/18/25 23:50
Sodium Chloride 0.9% (Flush) Syringe IV 04/15/25 17:59 2 flush
PER PROTOCOL RUBI Administration
Thiamine HCl 200 mg 03/18/25 16:59 03/20/25 00:11
Thiamine (100 Mg/Ml) 2 Ml Vial IV 03/21/25 08:01 200 mg
Q8 RUBI Administration
Thiamine HCl 100 mg 03/21/25 20:00
Thiamine 100 Mg Tablet PO 04/18/25 19:59
BID RUBI
Home Medications
�Medication �Instructions �Recorded
escitalopram oxalate 10 mg tablet 15 mg PO DIRECTED 09/30/23
(Lexapro) depression/anxiety
propranolol 20 mg tablet 20 mg PO BID BP/tremor/AUD 09/30/23
cholecalciferol (vitamin D3) 25 25 mcg PO DAILY Supplement 07/24/24
mcg (1,000 unit) tablet (Vitamin
D3)
cyanocobalamin (vitamin B-12) 1,000 mcg PO DAILY Supplement 07/24/24
1,000 mcg tablet
thiamine HCl (vitamin B1) 100 mg 100 mg PO DAILY Supplement 07/24/24
tablet
Niacin (Vitamin B3) 1 tab PO DAILY 03/18/25
duloxetine 20 mg capsule,delayed 10 mg PO DIRECTED 03/18/25
release (Cymbalta)
ferrous sulfate 325 mg (65 mg 325 mg PO DAILY 03/18/25
iron) tablet (iron)
ibuprofen 200 mg tablet 200 - 400 mg PO DAILYPRN PRN mild 03/18/25
pain
lamotrigine 150 mg tablet 150 mg PO DAILY 03/18/25
(Lamictal)
mirtazapine 15 mg tablet (Remeron) 15 mg PO HS 03/18/25
therapeutic multivitamin 1 tab PO DAILY 03/18/25
Vital Signs and Labs
-
Vital Signs and Labs:
Vital Signs
Temp Pulse Resp BP Pulse Ox
36.6 C 59 16 134/81 96
03/20/25 07:49 03/20/25 07:49 03/20/25 07:49 03/20/25 07:49 03/20/25 07:49
Lab Results
03/19/25 14:05
03/20/25 05:37
PT 14.5 Sec (11.4-14.6) 03/18/25 19:11
INR 1.08 03/18/25 19:11
APTT 30.6 Sec (23.4-35.0) 03/18/25 19:11
Sodium 138 mmol/L (135-145) 03/20/25 05:37
Potassium 3.8 mmol/L (3.5-5.1) 03/20/25 05:37
BUN 11 mg/dl (9-20) 03/20/25 05:37
Glucose 94 mg/dl (70-99) 03/20/25 05:37
Calcium 9.0 mg/dl (8.4-10.2) 03/20/25 05:37
Phosphorus 3.7 mg/dl (2.5-4.5) 03/18/25 17:31
Ur Buprenorphine Negative (Negative) 03/19/25 22:39
Medications
-
Medications:
Generic Name Dose Route Start Last Admin
Trade Name Freq PRN Reason Stop Dose Admin
Bisacodyl 10 mg 03/18/25 16:59
Bisacodyl 10 Mg Rectal Suppository RECTAL 04/15/25 16:58
[id number] PRN
constipation
Enoxaparin Sodium 40 mg 03/18/25 18:00 03/19/25 18:07
Enoxaparin Sodium 40 Mg/0.4 Ml Syringe SC 04/15/25 17:59 Not Given
QPM RUBI
Escitalopram Oxalate 15 mg 03/18/25 17:00 03/20/25 08:40
Escitalopram 10 Mg Tablet PO 03/23/25 08:01 15 mg
DAILY RUBI Administration
Escitalopram Oxalate 10 mg 03/24/25 08:00
Escitalopram 10 Mg Tablet PO 03/30/25 08:01
DAILY RUBI
Escitalopram Oxalate 5 mg 03/31/25 08:00
Escitalopram 5 Mg Tablet PO 04/06/25 08:01
DAILY RUBI
Ferrous Sulfate 325 mg 03/19/25 08:00 03/20/25 08:36
Ferrous Sulfate 325 Mg Tablet PO 04/16/25 07:59 325 mg
DAILY RUBI Administration
Folic Acid 1 mg 03/19/25 08:00 03/20/25 08:36
Folic Acid 1 Mg Tablet PO 04/16/25 07:59 1 mg
DAILY RUBI Administration
Folic Acid 1 mg/ Sodium 50.2 mls @ 200.8 mls/hr 03/18/25 16:59
Chloride IV 04/15/25 16:58
DAILYPRN PRN
if NPO
Lamotrigine 150 mg 03/19/25 08:00 03/20/25 08:36
Lamotrigine 100 Mg Tablet PO 04/16/25 07:59 150 mg
DAILY RUBI Administration
Lorazepam 1 mg 03/18/25 16:59
Lorazepam 1 Mg Tablet PO 04/15/25 16:58
Q2HPRN PRN
MSAS 5-7
Lorazepam 2 mg 03/18/25 16:59
Lorazepam 2 Mg/Ml Vial IV 04/15/25 16:58
Q1HPRN PRN
MSAS > 11
Lorazepam 1 mg 03/18/25 17:39
Lorazepam 1 Mg Tablet PO 04/15/25 17:38
Q1HPRN PRN
MSAS 8-11
Mirtazapine 15 mg 03/18/25 22:00 03/19/25 21:57
Mirtazapine 15 Mg Regular Release Tablet PO 04/15/25 21:59 15 mg
HS RUBI Administration
Phenobarbital Sodium 97.5 mg 03/18/25 22:00 03/20/25 08:40
Phenobarbital (65 Mg/Ml) 1 Ml Vial IV 03/20/25 16:01 97.5 mg
TID RUBI Administration
Phenobarbital Sodium 64.8 mg 03/20/25 22:00
Phenobarbital 32.4 Mg Tablet PO 03/22/25 16:01
TID RUBI
Phenobarbital Sodium 32.4 mg 03/22/25 22:00
Phenobarbital 32.4 Mg Tablet PO 03/24/25 16:01
TID RUBI
Polyethylene Glycol 17 grams 03/18/25 16:59
Polyethylene Glycol Powder 17 Grams Packet PO 04/15/25 16:58
DAILYPRN PRN
constipation
Propranolol HCl 20 mg 03/18/25 20:00 03/20/25 08:44
Propranolol 20 Mg Regular Release Tablet PO 04/15/25 19:59 20 mg
BID RUBI Administration
Senna/Docusate Sodium 1 tablet 03/18/25 16:59
Docusate W/Senna (Carla-Colace) Tablet PO 04/15/25 16:58
BIDPRN PRN
constipation
Sodium Chloride 0 ml 03/18/25 16:59
Sodium Chloride 0.9% (Preservative Free) 10 Ml Vial IV 04/15/25 16:58
PRN PRN
To dilute IV Ativan
Protocol
Sodium Chloride 0 flush 03/18/25 18:00 03/18/25 23:50
Sodium Chloride 0.9% (Flush) Syringe IV 04/15/25 17:59 2 flush
PER PROTOCOL RUBI Administration
Thiamine HCl 200 mg 03/18/25 16:59 03/20/25 08:36
Thiamine (100 Mg/Ml) 2 Ml Vial IV 03/21/25 08:01 200 mg
Q8 RUBI Administration
Thiamine HCl 100 mg 03/21/25 20:00
Thiamine 100 Mg Tablet PO 04/18/25 19:59
BID RUBI
Home Medications
-
Home Medications
escitalopram oxalate 10 mg tablet (Lexapro) 15 mg PO DIRECTED depression/anxiety 09/30/23
propranolol 20 mg tablet 20 mg PO BID BP/tremor/AUD 09/30/23
cholecalciferol (vitamin D3) 25 mcg (1,000 unit) tablet (Vitamin D3) 25 mcg PO DAILY Supplement 07/24/24
cyanocobalamin (vitamin B-12) 1,000 mcg tablet 1,000 mcg PO DAILY Supplement 07/24/24
thiamine HCl (vitamin B1) 100 mg tablet 100 mg PO DAILY Supplement 07/24/24
Niacin (Vitamin B3) 1 tab PO DAILY 03/18/25
duloxetine 20 mg capsule,delayed release (Cymbalta) 10 mg PO DIRECTED 03/18/25
ferrous sulfate 325 mg (65 mg iron) tablet (iron) 325 mg PO DAILY 03/18/25
ibuprofen 200 mg tablet 200 - 400 mg PO DAILYPRN PRN mild pain 03/18/25
lamotrigine 150 mg tablet (Lamictal) 150 mg PO DAILY 03/18/25
mirtazapine 15 mg tablet (Remeron) 15 mg PO HS 03/18/25
therapeutic multivitamin 1 tab PO DAILY 03/18/25
[2025-03-20 08:16] LABS: Lamotrigine (Lamictal) 5.2 ug/mL (3.0-15.0)
[2025-03-20] MEDS: LAMICTAL 150 MG PO (08:36)
[2025-03-20] MEDS: FEOSOL 325 MG PO (08:36)
[2025-03-20] MEDS: FOLVITE 1 MG PO (08:36)
[2025-03-20] MEDS: PHENOBARBITAL 97.5 MG IV ×2 (08:40→16:24)
[2025-03-20] MEDS: LEXAPRO 15 MG PO (08:40)
[2025-03-20] MEDS: INDERAL 20 MG PO ×2 (08:44→20:07)
[2025-03-20 11:25] VITALS: BP 138/86
--- NOTE | 2025-03-20 14:47 | CM ---
Addendum entered by Aby Meza 03/20/25 17:01:
Pt has an appointment at [facility] next week.
Original Note:
CM following for discharge planning. Met with Flako at bedside after he had an EEG. Results pending.
Discussed [facility] and alcohol use disorder. Flako had attended AA in the past; willing to speak with [facility] Health And Wellness Coordinator.
CM contacted Alanna who will visit pt today to discuss addiction resource options.
Plan: CM to follow to assist with all discharge needs. Pt has still not discussed with his SO.
--- NOTE | 2025-03-20 15:34 | EEGC.RPT ---
Continuous EEG Report
Recording
Start Date of Data Reviewed: 03/20/25
Done with Video Recording: Yes
Report
TECHNICAL REMARKS: This is a technically satisfactory eighteen channel record employing 21 disc electrodes applied according to a measured international 10-20 electrode placement system. There were no significant technical difficulties. The study
was done on a [employer] System.
CLINICAL HISTORY: This is a 54-year-old man with seizure this study was requested to look for epileptiform abnormalities.
MEDICATIONS: Lamotrigine
STUDY DURATION: 28 min, 47 secs
REPORT: At the onset of the EEG, the patient is awake. The background activity consists of 8.5-9Hz, persistent, posteriorly dominant, moderate amplitude, symmetric and rhythmic activity that is reactive to eye-opening. Anteriorly, it consists of a
mixture of low voltage indeterminate activity and 20-25 Hz, persistent, low amplitude, symmetric and rhythmic activity. Stepwise intermittent photic stimulation (1-31 Hz) does not induce any abnormalities. Hyperventilation was not performed.
Drowsiness is characterized by low amplitude mixed frequency activity, decreased eye blinking, and muscle artifact.
IMPRESSION: This is a normal awake and drowsy EEG. There is no evidence of focal slowing or epileptiform activity. A normal EEG does not rule out epilepsy. If the clinical picture warrants, a sleep-deprived awake and sleep record may be helpful.
[2025-03-20 15:39] VITALS: BP 135/79
[2025-03-20] MEDS: LOVENOX 40 MG SC (18:00)
--- NOTE | 2025-03-20 19:14 | W.PN.HOSP.TC ---
Today's Communication/Plan
-
Continue phenobarb taper
Continue to monitor for alcohol withdrawal
Assessment / Plan
Assessment / Plan
Physical Exam
General: Well Developed, Well Nourished and No Apparent Distress
HEENT: Normocephalic, Moist mucous membranes
Respiratory: Clear to Auscultation Bilaterally
Cardiac: S1/S2 and Regular Rhythm
GI: Soft, Non Tender, Non Distended and Normal Bowel Sounds
Musculoskeletal: No Cyanosis and No Edema
Skin: Warm. Dry.
Neuro: AAO x 3 and Nonfocal/grossly intact
Psych: Calm
Assessment/Plan
54-year-old male with past medical history of reported history of epilepsy, alcohol use disorder, alcohol withdrawal seizure once, alcoholic hepatitis, on Lamictal for mood stabilization, hyperammonemia, anemia, tobacco use disorder, presented for
alcohol withdrawal seizure. Started taking duloxetine yesterday and weaning off Lexapro because Lexapro not helping his mood. He was drinking half a pint of vodka +6 beers and stopped vodka on 03/17/25 and continuing to 6 beers on 03/17/25. Last
drink was 03/17/25 evening. noted that he was breathing heavily and hands were twitching while asleep and biting tongue. Alcohol level negative. Ammonia level of 61. 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
Patient with susp[ected alcohol withdrawal seizures alcohol withdrawal. Phenobarbital protocol. Alcohol withdrawal protocol. IV fluids, thiamine and folate. Lamictal level pending. Will hold Cymbalta although does not seem that seizure is
related to this.
# Alcohol withdrawal with multiple seizures
- Head CT with small old right lentiform nucleus infract seen again.No acute intracranial abnormality.
- Alcohol protocol initiated
- Monitor MSAS score
- B care consulted
- Continue phenobarbital taper
- Patient has a reported history of epilepsy per records, will consult neurology
- Lamictal level normal
- Patient Started Cymbalta 03/17/25 -- but this was stopped on admission given seizure -- this was for mood -- since Lexapro was not working for mood, it was being weaned off and Cymbalta started
outpatient
# Hyperammonemia
- Was elevated at 61 --> repeat is low
- No encephalopathy noted
# Tremor
-Propranolol continued
#Depression/mood disorder
- Continue Lexapro taper
- Hold Cymbalta
- Mirtazapine for sleep at night
- Lamictal continued
Code Status: Full Code
DVT Prophylaxis: Lovenox
Anticipated Discharge: > 48 hours
Subjective/Interval History
-
Date of Service: March 20, 2025
Patient was seen and examined. He reported feeling well and denied any new symptoms or complaints.
Objective Data
-
Vital Signs:
Vital Signs
Temp Pulse Resp BP Pulse Ox
99.3 F 59 17 135/79 99
03/20/25 15:39 03/20/25 15:39 03/20/25 15:39 03/20/25 15:39 03/20/25 15:39
I&O
03/19/25 03/20/25 03/21/25
06:59 06:59 06:59
Intake Total 1440 / 1440 2039
Balance 1440 / 1440 2039
[2025-03-20 19:33] VITALS: BP 127/76
[2025-03-20] MEDS: LUMINAL 64.8 MG PO (22:02)
[2025-03-20] MEDS: REMERON 15 MG PO (22:02)
[2025-03-20 23:00] VITALS: BP 98/64
[2025-03-21 02:33] VITALS: BP 134/85
[2025-03-21 07:00] VITALS: BP 165/96
[2025-03-21 09:05] LABS: Blood Urea Nitrogen 12 mg/dl (9-20); Calcium 9.5 mg/dl (8.4-10.2); Carbon Dioxide 29 mmol/L (22-30); Chloride 104 mmol/L (98-107); Estimated Creatinine Clearance > 125 ml/min; Glucose 101 mg/dl (70-99); Potassium 4.2 mmol/L (3.5-5.1); Sodium 139 mmol/L (135-145); eGFR > 60.00
[2025-03-21] MEDS: INDERAL 20 MG PO ×2 (09:06→20:33)
[2025-03-21] MEDS: LUMINAL 64.8 MG PO ×3 (09:06→21:01)
[2025-03-21] MEDS: LAMICTAL 150 MG PO (09:07)
[2025-03-21] MEDS: FEOSOL 325 MG PO (09:08)
[2025-03-21] MEDS: LEXAPRO 15 MG PO (09:08)
[2025-03-21] MEDS: FOLVITE 1 MG PO (09:08)
[2025-03-21] MEDS: THIAMINE INJECTION 200 MG IV (09:09)
--- NOTE | 2025-03-21 10:24 | W.PN.HOSP.TC ---
Today's Communication/Plan
-
Continue Phenobarb taper and MSAS
Assessment / Plan
Assessment / Plan
Physical Exam
General: Well Developed, Well Nourished and No Apparent Distress
HEENT: Normocephalic, Moist mucous membranes
Respiratory: Clear to Auscultation Bilaterally
Cardiac: S1/S2 and Regular Rhythm
GI: Soft, Non Tender, Non Distended and Normal Bowel Sounds
Musculoskeletal: No Cyanosis and No Edema
Skin: Warm. Dry.
Neuro: AAO x 3 and Nonfocal/grossly intact
Psych: Calm
Assessment/Plan
54-year-old male with past medical history of reported history of epilepsy, alcohol use disorder, alcohol withdrawal seizure once, alcoholic hepatitis, on Lamictal for mood stabilization, hyperammonemia, anemia, tobacco use disorder, presented for
alcohol withdrawal seizure. Started taking duloxetine yesterday and weaning off Lexapro because Lexapro not helping his mood. He was drinking half a pint of vodka +6 beers and stopped vodka on 03/17/25 and continuing to 6 beers on 03/17/25. Last
drink was 03/17/25 evening. noted that he was breathing heavily and hands were twitching while asleep and biting tongue. Alcohol level negative. Ammonia level of 61. 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
Patient with susp[ected alcohol withdrawal seizures alcohol withdrawal. Phenobarbital protocol. Alcohol withdrawal protocol. IV fluids, thiamine and folate. Lamictal level pending. Will hold Cymbalta although does not seem that seizure is
related to this.
# Alcohol withdrawal with multiple seizures
- Head CT with small old right lentiform nucleus infract seen again.No acute intracranial abnormality.
- Alcohol protocol initiated
- Monitor MSAS score
- B care consulted
- Continue phenobarbital taper
- Patient has a reported history of epilepsy per records, consulted neurology: EEG and MRI outpatient
- Addiction psychiatry follow-up and outpatient neuropsychological evaluation
- Outpatient neurology follow-up (can consider amyloid PET scan)
- Lamictal level normal
- Patient Started Cymbalta 03/17/25 -- but this was stopped on admission given seizure -- this was for mood -- since Lexapro was not working for mood, it was being weaned off and Cymbalta started
outpatient
# Hyperammonemia
- Was elevated at 61 --> repeat is low
- No encephalopathy noted
# Tremor
-Propranolol continued
#Depression/mood disorder
- Continue Lexapro taper
- Hold Cymbalta
- Mirtazapine for sleep at night
- Lamictal continued
Code Status: Full Code
DVT Prophylaxis: Lovenox
Anticipated Discharge: > 48 hours
Subjective/Interval History
-
Date of Service: March 21, 2025
Patient was seen and examined. He denied any new symptoms or complaints.
Objective Data
-
Labs:
Laboratory Results
03/21/25
07:53
Sodium 139
Potassium 4.2
Chloride 104
Carbon Dioxide 29
BUN 12
Creatinine 0.7
Glucose 101 H
Calcium 9.5
Vital Signs:
Vital Signs
Temp Pulse Resp BP Pulse Ox
97.7 F 64 19 165/96 98
03/21/25 07:00 03/21/25 07:00 03/21/25 07:00 03/21/25 07:00 03/21/25 07:00
I&O
03/20/25 03/21/25 03/22/25
06:59 06:59 06:59
Intake Total 2280 / 2280
Balance 2280 / 2280
[2025-03-21 11:00] VITALS: BP 161/94
--- NOTE | 2025-03-21 11:59 | CM ---
Patient seen at bedside on . Patient stated that he has no further questions about [facility] at this time or discharge planning needs. CM will continue to follow for discharge planning needs.
Plan; home with no needs vs follow up with [facility]
[2025-03-21 15:00] VITALS: BP 130/75
[2025-03-21] MEDS: LOVENOX 40 MG SC (18:04)
[2025-03-21 19:56] VITALS: BP 127/73
[2025-03-21] MEDS: VITAMIN B1 100 MG PO (20:32)
[2025-03-21] MEDS: REMERON 15 MG PO (21:01)
[2025-03-21 23:25] VITALS: BP 113/74
[2025-03-22 03:10] VITALS: BP 112/72
[2025-03-22 07:35] VITALS: BP 116/74
[2025-03-22 07:48] LABS: Blood Urea Nitrogen 9 mg/dl (9-20); Carbon Dioxide 25 mmol/L (22-30); Chloride 110 mmol/L (98-107); Estimated Creatinine Clearance > 125 ml/min; Glucose 96 mg/dl (70-99); Magnesium 1.9 mg/dl (1.6-2.3); Potassium 4.9 mmol/L (3.5-5.1); Sodium 141 mmol/L (135-145); eGFR > 60.00
[2025-03-22] MEDS: VITAMIN B1 100 MG PO ×2 (08:11→20:20)
[2025-03-22] MEDS: FEOSOL 325 MG PO (08:11)
[2025-03-22] MEDS: INDERAL 20 MG PO ×2 (08:11→20:20)
[2025-03-22] MEDS: LAMICTAL 150 MG PO (08:11)
[2025-03-22] MEDS: LUMINAL 64.8 MG PO ×2 (08:12→17:12)
[2025-03-22] MEDS: FOLVITE 1 MG PO (08:12)
[2025-03-22] MEDS: LEXAPRO 15 MG PO (08:12)
--- NOTE | 2025-03-22 08:14 | W.PN.HOSP.TC ---
Today's Communication/Plan
-
High risk alcohol withdrawal
Continue Phenobarb taper -- should be almost done with tomorrow, so can likely discharge tomorrow
Assessment / Plan
Assessment / Plan
Physical Exam
General: Well Developed, Well Nourished and No Apparent Distress
HEENT: Normocephalic, Moist mucous membranes
Respiratory: Clear to Auscultation Bilaterally
Cardiac: S1/S2 and Regular Rhythm
GI: Soft, Non Tender, Non Distended and Normal Bowel Sounds
Musculoskeletal: No Cyanosis and No Edema
Skin: Warm. Dry.
Neuro: AAO x 3 and Nonfocal/grossly intact
Psych: Calm
Assessment/Plan
54-year-old male with past medical history of reported history of epilepsy, alcohol use disorder, alcohol withdrawal seizure once, alcoholic hepatitis, on Lamictal for mood stabilization, hyperammonemia, anemia, tobacco use disorder, presented for
alcohol withdrawal seizure. Started taking duloxetine yesterday and weaning off Lexapro because Lexapro not helping his mood. He was drinking half a pint of vodka +6 beers and stopped vodka on 03/17/25 and continuing to 6 beers on 03/17/25. Last
drink was 03/17/25 evening. noted that he was breathing heavily and hands were twitching while asleep and biting tongue. Alcohol level negative. Ammonia level of 61. 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
Patient with susp[ected alcohol withdrawal seizures alcohol withdrawal. Phenobarbital protocol. Alcohol withdrawal protocol. IV fluids, thiamine and folate. Lamictal level pending. Will hold Cymbalta although does not seem that seizure is
related to this.
# Alcohol withdrawal with multiple seizures
- Head CT with small old right lentiform nucleus infract seen again.No acute intracranial abnormality.
- Alcohol protocol initiated
- Monitor MSAS score
- B care consulted
- Continue phenobarbital taper
- Patient has a reported history of epilepsy per records, consulted neurology: EEG and MRI outpatient
- Addiction psychiatry follow-up and outpatient neuropsychological evaluation
- Outpatient neurology follow-up (can consider amyloid PET scan)
- Lamictal level normal
- Patient Started Cymbalta 03/17/25 -- but this was stopped on admission given seizure -- this was for mood -- since Lexapro was not working for mood, it was being weaned off and Cymbalta started
outpatient
# Hyperammonemia
- Was elevated at 61 --> repeat is low
- No encephalopathy noted
# Tremor
-Propranolol continued
#Depression/mood disorder
- Continue Lexapro taper
- Hold Cymbalta
- Mirtazapine for sleep at night
- Lamictal continued
Code Status: Full Code
DVT Prophylaxis: Lovenox
Anticipated Discharge: Within 24 hours
Subjective/Interval History
-
Date of Service: March 22, 2025
Patient was seen and examined. He denied any symptoms or complaints.
Objective Data
-
Labs:
Laboratory Results
03/22/25
06:42
Sodium 141
Potassium 4.9
Chloride 110 H
Carbon Dioxide 25
BUN 9
Creatinine 0.7
Glucose 96
Calcium 9.0
Vital Signs:
Vital Signs
Temp Pulse Resp BP Pulse Ox
98.4 F 59 16 116/74 97
03/22/25 07:35 03/22/25 07:35 03/22/25 07:35 03/22/25 07:35 03/22/25 07:35
I&O
03/21/25 03/22/25 03/23/25
06:59 06:59 06:59
Intake Total 2280 / 2280 1320 / 1320
Balance 2280 / 2280 1320 / 1320
--- NOTE | 2025-03-22 09:22 | CM ---
Addendum entered by Zonia Petersen 03/22/25 09:23:
VM left.
Original Note:
Per patient nursing patient now willing to talk to [facility] and discuss options. CM will call to [facility] and request follow up.
[2025-03-22 11:27] VITALS: BP 126/71
[2025-03-22 15:42] VITALS: BP 136/81
[2025-03-22] MEDS: LOVENOX 40 MG SC (17:13)
[2025-03-22 19:00] VITALS: BP 138/96
[2025-03-22 23:00] VITALS: BP 128/76
[2025-03-22] MEDS: REMERON 15 MG PO (23:13)
[2025-03-22] MEDS: LUMINAL 32.4 MG PO (23:13)
[2025-03-23 06:45] LABS: Blood Urea Nitrogen 10 mg/dl (9-20); Calcium 8.9 mg/dl (8.4-10.2); Carbon Dioxide 26 mmol/L (22-30); Chloride 107 mmol/L (98-107); Estimated Creatinine Clearance > 125 ml/min; Glucose 90 mg/dl (70-99); Potassium 4.2 mmol/L (3.5-5.1); Sodium 138 mmol/L (135-145); eGFR > 60.00
[2025-03-23 07:30] VITALS: BP 129/81
[2025-03-23] MEDS: FEOSOL 325 MG PO (08:05)
[2025-03-23] MEDS: VITAMIN B1 100 MG PO (08:05)
[2025-03-23] MEDS: LAMICTAL 150 MG PO (08:05)
[2025-03-23] MEDS: LUMINAL 32.4 MG PO (08:05)
[2025-03-23] MEDS: FOLVITE 1 MG PO (08:06)
[2025-03-23] MEDS: LEXAPRO 15 MG PO (08:06)
[2025-03-23] MEDS: INDERAL 20 MG PO (08:06)
--- NOTE | 2025-03-23 08:31 | W.PN.HOSP.TC ---
Today's Communication/Plan
-
d/c
Assessment / Plan
Assessment / Plan
Gen: NAD, AAOx3.
Eyes: EOMI, PERRLA, no scleral icterus.
Neck: supple.
CV: RRR, +S1/S2, no m/r/g.
Resp: CTAB, no rales, wheezes, or rhonchi.
Abd: +BS, soft, NT, ND
Skin: No rashes.
Neuro: CN 2-12 intact, non-focal.
Psych: Normal mood and affect.
Alcohol withdrawal with multiple seizures:
-CT brain with small old right lentiform nucleus infract seen again. No acute intracranial abnormality.
-cont MSAS protocol (Thiamine/folate/PRN Ativan)
-has been on phenobarbital taper, no need to continue taper at this point on d/c
-reported history of epilepsy per records, consulted neurology: EEG and MRI outpatient
-Addiction psychiatry follow-up and outpatient neuropsychological evaluation
-Outpatient neurology follow-up (can consider amyloid PET scan)
-Lamictal level normal
-Patient Started Cymbalta 03/17/25, stopped on admission given seizure, would not resume until complete EtOH cessation
Other problems:
Hyperammonemia, resolved
Tremor: cont propranolol
Depression/mood disorder: cont Lexapro taper, cont Lamictal
FULL/Lovenox
Total time spent on d/c = 31 min. This included today's physical exam, progress note, review of laboratory and diagnostic data, preparation of discharge documents and prescriptions, and discussions about the pt's hospital course and discharge plan
with the patient and other medical engineer involved in the patient's care.
Anticipated Discharge: Today
Subjective/Interval History
-
Date of Service: March 23, 2025
Reports baseline Anxiety. Denies AH/VH/tremors.
Objective Data
-
Labs:
Laboratory Results
03/23/25
05:35
Sodium 138
Potassium 4.2
Chloride 107
Carbon Dioxide 26
BUN 10
Creatinine 0.7
Glucose 90
Calcium 8.9
Vital Signs:
Vital Signs
Temp Pulse Resp BP Pulse Ox
98.2 F 63 16 128/76 99
03/23/25 07:30 03/23/25 08:06 03/23/25 07:30 03/23/25 08:06 03/23/25 07:30
I&O
03/22/25 03/23/25 03/24/25
06:59 06:59 06:59
Intake Total 1320 / 1320 960 / 960
Balance 1320 / 1320 960 / 960
--- NOTE | 2025-03-23 12:36 | W.DCSUMMARY ---
Discharge Summary
Discharge Data
Date of Admission: 03/18/25
Date of Discharge: 03/23/25
-
Pending Results: No
Hospital Course
Primary diagnoses:
Alcohol withdrawal with alcohol withdrawal seizures
Secondary diagnoses:
Seizure disorder
Depression
Anxiety
Hyperammonemia
Tremor
Depression/mood disorder
Consults:
Neurology
Imaging:
CT brain: Small old right lentiform nucleus infarct again seen. No acute intracranial abnormality.
54-year-old male who presented with a seizure as outlined in the H&P done on admission. Hospital course per problem list:
Alcohol withdrawal with multiple seizures: CT brain with small old right lentiform nucleus infract seen again. No acute intracranial abnormality. Patient was placed on the MSAS protocol (Thiamine/folate/PRN Ativan) and a phenobarbital taper. He
was seen in consultation by neurology. EEG and MRI brain recommended after discharge in the outpatient setting. Patient was on omeprazole at home and his level was normal. He had also been started on Cymbalta 03/17/25.this was stopped on
admission given seizure and he should not resume until complete EtOH cessation. Patient had no further seizures while hospitalized and he was discharged in medically stable condition
Discharge Plan
-
Patient Disposition: Home (Routine Discharge)
Discharge Diagnosis/Procedures: alcohol abuse with alcohol withdrawal seizure
Condition: Good
Diet: No restrictions
Activity: No restrictions
Driving Restrictions: As prior to admission
Blood Work: CMP and CBC in 1 week, script from PCP
Referrals:
NONE,* [Family Provider, Internal Medicine] - in less than 1 week
Prescriptions:
New
escitalopram oxalate 10 mg Tablet
10 mg PO DAILY Qty: 7 0RF
escitalopram oxalate 5 mg Tablet
5 mg PO DAILY Qty: 7 0RF
Rx Instructions:
start 03/30/25
folic acid 1 mg Tablet
1 mg PO DAILY Qty: 0 0RF
thiamine mononitrate (vit B1) 100 mg Tablet
100 mg PO BID Qty: 0 0RF
Continued
propranolol 20 mg Tablet
20 mg PO BID
cyanocobalamin (vitamin B-12) 1,000 mcg Tablet
1,000 mcg PO DAILY
cholecalciferol (vitamin D3) [Vitamin D3] 25 mcg (1,000 unit) Tablet
25 mcg PO DAILY
thiamine HCl (vitamin B1) 100 mg tablet
100 mg PO DAILY
lamotrigine [Lamictal] 150 mg Tablet
150 mg PO DAILY
therapeutic multivitamin Tablet
1 tab PO DAILY
mirtazapine [Remeron] 15 mg Tablet
15 mg PO HS
Niacin (Vitamin B3)
1 tab PO DAILY
ferrous sulfate [iron] 325 mg (65 mg iron) Tablet
325 mg PO DAILY
Discontinued
escitalopram oxalate [Lexapro] 10 mg Tablet
15 mg PO DIRECTED
Patient Comments:
03/18/2025, per significant other, pt. just started taking 15 mg yesterday (03/17/2025).
Rx Instructions:
03/18/2025, 15 mg x 1 week; 10 mg x 1 week; 5 mg x 1 week.
ibuprofen 200 mg Tablet
200 - 400 mg PO DAILYPRN PRN (Reason: mild pain)
duloxetine [Cymbalta] 20 mg Capsule,Delayed Release(Dr/Ec)
10 mg PO DIRECTED
Patient Comments:
03/18/2025, per significant other, pt. just started taking 10 mg yesterday (03/17/2025).
Rx Instructions:
10 mg x 1 week; 20 mg x 1 week; 30 mg x 1 week; 60 mg after completion of 5 mg of Lexepro.
Discharge Orders:
Discharge Patient (As Directed); Ordered 03/23/25
Ordered By: Stef Issa
Discharge Date and Time
Discharge Date/Time: 03/23/25 09:55
Print Language: SAO TOMEAN
== END 2025-03-23 09:55 | disposition home or self-care (01) | DRG 897 ==
LOC: 3 WEST ACU 15:28
PROVIDERS: Hospitalist; Physician Assistant; Registered Nurse; ADMITTING PHYSICIAN Hospitalist; ATTENDING PHYSICIAN Internal Medicine; CONSULT PHYSICIAN Psychiatry & Neurology Neurology; EMERGENCY PHYSICIAN Emergency Medicine
DX: F10.139 Alcohol abuse with withdrawal, unspecified (principal); G40.509 Epileptic seizures related to external causes, not intractable, without status epilepticus; E72.20 Disorder of urea cycle metabolism, unspecified; G93.40 Encephalopathy, unspecified; F17.200 Nicotine dependence, unspecified, uncomplicated; R61 Generalized hyperhidrosis; E55.9 Vitamin D deficiency, unspecified; G31.9 Degenerative disease of nervous system, unspecified; F41.1 Generalized anxiety disorder; F32.A Depression, unspecified; K70.10 Alcoholic hepatitis without ascites; M19.90 Unspecified osteoarthritis, unspecified site; Z88.6 Allergy status to analgesic agent; Z81.8 Family history of other mental and behavioral disorders; Z81.1 Family history of alcohol abuse and dependence; Z79.82 Long term (current) use of aspirin
CPT/HCPCS: 70450; 80048; 80053; 80175; 80306; 81003; 81015; 82010; 82077; 82140; 82962; 82977; 83735; 84100; 85025; 85027; 85610; 85730; 87086; 93005; 95816; 96374; 99285